=== PATIENT | male | born 1955 | race African-American/Black ===

== ENCOUNTER 2016-08-13 16:00 | Observation (INO) | payer BC ==
--- NOTE | ~2016-08-13 | CT4 ---
[facility] A Service of [facility] RADIOLOGY TEXT RESULTS PATIENT: TAJ MANTILLA LOCATION: A 238- : 55 UNIT #: [id number] AGE: [address]: Yemi Batista MD SEX: M ORDER DR: [id number] [facility] [place] [facility]. [place], [place] [address] [id number] MR#: [id number] Acc #: [id number] NAME: TAJ MANTILLA : 1955 SEX: M STUDY DATE/TIME: 08/15/2016 8:45 UNIT: C2 ROOM: [facility] STUDY DESCRIPTION: CT Abd and Pelv Wo Cont Attending Physician: Yemi Batista M.D. Ordering Physician: Yemi Batista M.D. Primary Care Physician: Yemi Batista M.D. MEDICAL IMAGING REPORT This report is preliminary unless electronic signature is present EXAM CT abdomen and pelvis without contrast. HISTORY Nausea and vomiting since August 09. COMPARISON 01/30/2016 Axial 5 mm images were obtained through the abdomen and pelvis without IV or oral contrast. This CT exam was performed with one or more of the following radiation dose reduction techniques: automatic exposure control, adjustment of mA and/or kV according to patient size, and iterative reconstruction. FINDINGS Lung bases are clear. The liver, spleen, pancreas, adrenal glands and kidneys are normal. The gallbladder has been removed. The aorta is normal in size. There is no adenopathy. There is a thin rim of soft tissue surrounding the aorta measuring about 5-8 mm in thickness, this is unchanged from the prior study. There are older studies including 05/25/2012 and this is unchanged. Soft tissue begins below the renal arteries. This could represent retroperitoneal fibrosis. The bowel including the appendix appears normal. The bladder and prostate gland are normal. IMPRESSION 1. There is a rim of soft tissue around the infrarenal aorta measuring up to 8 mm in thickness suggesting some retroperitoneal fibrosis. This is unchanged from 05/25/2012. 2. Previous cholecystectomy. [facility] A Service of [facility] RADIOLOGY TEXT RESULTS PATIENT: TAJ MANTILLA LOCATION: [facility] 238-01 : 55 UNIT #: [id number] AGE: [address]: Yemi Batista MD SEX: M ORDER DR: 3. Normal appendix. 4. Otherwise normal. Dictated by... Chaitanya Davis M.D. THIS IS AN ELECTRONICALLY VERIFIED REPORT Chaitanya Davis M.D. at 08/16/2016 7:28 AM RUMA/jason TD: 08/15/2016 09:27 JOB #: [id number] MEDICAL IMAGING REPORT Page 1 of 1 COPY
--- NOTE | ~2016-08-13 | HP ---
Unit #: [id number] #: [id number] Patient: TAJ MANTILLA [id number] [address] [place], [place] [address] [id number] I MR#: [id number] NAME: TAJ MANTILLA ROOM: 238 Age: 61 Sex: M Admission Date: 08/13/2016 : 1955 Attending Physician: Yemi Batista M.D. Primary Care Physician: Yemi Batista M.D. HISTORY AND PHYSICAL HISTORY OF PRESENT ILLNESS The patient is a 61-year-old black male with a history of hypertension, coronary artery disease, and hyperlipidemia, who has had on and off episodes of recurrent nausea, vomiting, and diarrhea for the past few years. He was previously admitted May 03, 2016, at which he had a CT scan that showed no active disease except for some scarring around his aorta that seemed to be stable. He was admitted at that time for acute kidney injury. He had had a previous episode that resolved with outpatient treatment. Now, he has had a recurrent episode that started on August 09, 2016. He was seen August 10, 2016, in the office and treated with clear liquid diet, Phenergan, and Imodium. Labs were sent and were fairly unremarkable except for a slightly elevated white count, fasting blood sugar, and calcium. He followed up today to be sure he was getting better and stated that his diarrhea is somewhat better, but every time he eats any solid foods, he has recurrent episodes of nausea and vomiting. He seems to be doing okay with clear liquids. But my concern is he may have a partial gastric outlet obstruction, and he is being admitted for further evaluation and therapy. ALLERGIES No known medical allergies. MEDICATIONS PRIOR TO ADMISSION 1. Plavix 75 mg daily. 2. Aspirin 81 mg daily. 3. Metoprolol succinate 25 mg daily. 4. Amlodipine 10 mg daily. 5. Atorvastatin 80 mg daily. 6. Valsartan 320 mg daily. 7. CoQ10 at 200 mg daily. PAST MEDICAL HISTORY 1. Colonic polyps. 2. Coronary artery disease. 3. Hypertension. 4. Hyperlipidemia. 5. Recurrent episodes of nausea, vomiting, and diarrhea. PAST SURGICAL HISTORY 1. Angioplasty x2 in 2008 and 2010. 2. Cholecystectomy per laparoscopy in 2010. Unit #: [id number] #: [id number] Patient: TAJ MANTILLA SOCIAL HISTORY . Employed at [employer]. Nonsmoker, nondrinker, and no street drug use. FAMILY HISTORY Noncontributory. PHYSICAL EXAMINATION GENERAL: He is awake, alert, oriented x3, and in some distress because of ongoing nausea and vomiting. Here in the office, his weight was stable from last time, and it dropped about eight pounds since his May visit, currently at 206. Height 65 inches and BMI 34. VITAL SIGNS: Temperature 98.7, O2 saturation on room air 98%, and heart rate 65. HEENT: Unremarkable. Sclerae were nonicteric, not pale. His mucous membranes were not dry. NECK: Supple without JVD, bruits, adenopathy, or thyromegaly. CHEST: Clear to auscultation. HEART: Regular rate and rhythm, without any murmurs, rubs, or gallops. ABDOMEN: Soft, nondistended, and nontender, with positive bowel sounds and no hepatosplenomegaly. EXTREMITIES: No clubbing, cyanosis, or edema. GENITOURINARY/RECTAL: Deferred. NEUROLOGIC: Grossly intact. DIAGNOSTIC STUDIES LABORATORY: Mentioned above. IMPRESSION 1. Recurrent nausea, vomiting, and diarrhea of unclear etiology. 2. Distant history of peptic ulcer disease. 3. Hypertension. 4. Coronary artery disease. 5. Hyperlipidemia. 6. Status post cholecystectomy. PLAN N.p.o. except for ice chips. IV fluids, IV Phenergan, and IV proton pump inhibitors. Bilateral SCDs for DVT prophylaxis. GI consult for EGD. Repeat labs possibly with a CT scan. Further evaluation pending results of the above. Dictated by Tong [place]/ruperto TD: 08/13/2016 17:19 JOB #: [id number] Unit #: [id number] #: [id number] Patient: TAJ MANTILLA HISTORY AND PHYSICAL Page 1 of 1 X Yemi Batista MD HISTORY AND PHYSICAL
--- NOTE | ~2016-08-13 | DS ---
Unit #: [id number] #: [id number] Patient: TAJ MANTILLA [id number] [address] [place], [place] [address] [id number] MR#: [id number] NAME: TAJ MANTILLA ROOM: 238 Age: 61 Sex: M Admission Date: 08/13/2016 : 1955 Discharge Date: 08/16/2013 Attending Physician: Yemi Batista M.D. Primary Care Physician: Yemi Batista M.D. DISCHARGE SUMMARY PRINCIPAL DISCHARGE DIAGNOSES 1. Acute kidney injury. 2. Nausea, vomiting and diarrhea. 3. 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 4. Coronary artery disease. 5. Hypertension. 6. Hyperlipidemia. PROCEDURES EGD with biopsies on 08/13/16. CONSULTANTS Dr. Power from GI service. REASON FOR HOSPITALIZATION The patient is a 61-year-old black male with history of hypertension, coronary artery disease and hyperlipidemia. He has had multiple episodes over the past few years of nausea, vomiting and diarrhea with multiple negative workups. He has had a previous cholecystectomy, had a negative CAT scan in May of 2016, negative colonoscopy in 2013 but did have a history of peptic ulcer disease. He was seen in the office about 3 days prior to admission with recurrent nausea, vomiting and diarrhea. He was placed on clear liquids and sent home with Phenergan suppositories and Imodium p.r.n., only to come back to the office with no improvement. At that time it was felt that he needed to be admitted for further evaluation and rehydration, and he was admitted directly from the office on the . HOSPITAL COURSE He was admitted to a med/surg bed. He was made NPO except for ice chips, started on IV fluids. Labs were sent. He was started on IV Protonix. GI service was consulted. He was given IV antiemetics. Labs showed a CBC to be normal. His sodium was 132, potassium 3.3, BUN 32, creatinine 1.5, GFR 57, consistent with acute kidney injury. Amylase and lipase were normal. He underwent EGD, which showed some mild duodenitis and gastritis. Biopsies were sent and showed same. H. pylori stains were negative, and there was no malignancy. We attempted to advance his diet, but he did not tolerate it. Because of this, he underwent a CT scan, which was within normal limits except for some chronic fibrotic changes in the infrarenal aorta, consistent with retroperitoneal fibrosis, unchanged from 05/25/12. Evidence of previous cholecystectomy. He was placed on Reglan. He has been tolerating a regular diet for the past 24 hours. His labs have normalized. He is being discharged home. DISCHARGE MEDICATIONS Unit #: [id number] #: [id number] Patient: TAJ MANTILLA 1. Reglan 5 mg a.c. 2. Imodium p.r.n. 3. Diovan 320 mg daily. 4. CoQ10 200 mg daily. 5. Multivitamin daily. 6. Aspirin 81 mg daily. 7. Plavix 75 mg daily. 8. Protonix 40 mg daily. 9. I believe he is on some other antihypertensives and a statin at home, which he will resume. FOLLOW-UP He will follow up in 1 week in the office. He is to call in the meantime for any problems. Dr. Power, as well as myself, suspect he might be having marijuana-induced hyperemesis. His drug screen here was positive for same. Discussion with the patient, abstinence encouraged. He understands and will be discharged home. Dictated by... Yemi Batista M.D. IRINEO/ildefonso TD: 08/16/2016 09:36 JOB #: [id number] DISCHARGE SUMMARY Page 1 of 1 X Yemi Batista MD X DISCHARGE SUMMARY
--- NOTE | ~2016-08-13 | OR ---
Unit #: [id number] #: [id number] Patient: TAJ MANTILLA [id number] [address] [address] [id number] I MR#: [id number] NAME: TAJ MANTILLA ROOM: [facility] Date of Procedure: 08/13/2016 Admission Date: 08/13/2016 Surgeon: Prosper Power M.D. : 1955 Attending Physician: Yemi Batista M.D. Primary Care Physician: Yemi Batista M.D. OPERATIVE REPORT JOB NOTE: CC: PRIMARY CARE PHYSICIAN PROCEDURE PERFORMED Esophagogastroduodenoscopy with biopsies. INDICATIONS FOR PROCEDURE The patient with persistent nausea and vomiting. MEDICATIONS Monitored anesthesia. POSTOPERATIVE FINDINGS 1. Mild esophagitis and hiatal hernia. 2. Diffuse gastritis. Biopsies taken. 3. Significant duodenitis involving duodenal bulb and descending duodenum. Biopsies taken separately. PLAN 1. Continue PPI therapy and symptomatic treatment. 2. Follow up on pathology report. DESCRIPTION OF PROCEDURE The patient was explained of the procedure, risks, and benefits along with risks and benefits of anesthesia. He was brought to the endoscopy room. Propofol anesthesia was given. Bite block was placed. The scope was passed down the mouth into the esophagus, stomach, duodenum, and distal duodenum. Findings as described. Biopsies taken. Gently, I pulled the scope out of the patient's mouth. He tolerated it well. Dictated by... Tong Weeks/ericka TD: 08/14/2016 22:21 JOB #: [id number] Unit #: [id number] #: [id number] Patient: TAJ MANTILLA OPERATIVE REPORT Page 1 of 1 X Prosper Power MD X PROCEDURE OPERATIVE NOTE
[~2016-08-13 16:00] MED LIST: AMLODIPINE BESYL5 MG PO; APRESOLINE PO; ASPIRIN PO; BAYER ASPIRIN325 M1 PO; CLONIDINE HCL0.1 MG PO; CLONIDINE PO; CLOPIDOGREL75 MG PO; CO Q-10200 MG PO; DIOVAN HCT 160/1 TAB PO; DIOVAN HCT 1601 EACH PO; DIOVAN PO; DIOVAN320 MG PO; ECOTRIN81 M1 PO; HYDRALAZINE HCL25 MG PO; IMMODIUM PO; LIPITOR PO; LOPRESSOR PO; LORTAB 101 TAB 10/5 PO; NITROGYLCERIN SUBLINGUAL; NITROLINGUAL12 G1 SL; PHENERGAN25 MG PO; PLAVIX PO; PRILOSEC40 MG PO; PROTONIX PO; RA ONE DAILY M1 EACH PO; TOPROL XL PO; ZANTAC150 MG PO; ZANTAC300 MG PO
[2016-08-13 20:01] LABS: HEMATOCRIT 45.2 % (38.0-50.0); HEMOGLOBIN 15.4 gm/dL (13.0-16.0); MEAN CELL VOLUME 78.8 FL (83-96); MEAN CORPUSCULAR HEMOGLOBIN 26.9 PG (28-34); MEAN CORPUSCULAR HGB CONC 34.2 g/dL (30-36); MEAN PLATELET VOLUME 7.8 FL (6.5-11.5); RED BLOOD COUNT 5.74 X10e (3.90-5.60); WHITE BLOOD COUNT 10.3 X10e3 (4.0-10.5)
[2016-08-13 20:29] LABS: BILIRUBIN,TOTAL 1.2 mg/dL (0.2-2.0); BUN/CREATININE RATIO 21.33; CALCIUM SERUM 8.5 mg/dL (8.4-10.2); CREATININE SERUM 1.5 mg/dL (0.6-1.4); GLOM FILT RATE Estimated 57.4 mL/min (>60); MAGNESIUM 2.1 mg/dL (1.6-3.0); POTASSIUM 3.3 mmol/L (3.5-5.1)
[2016-08-14 05:16] LABS: HEMATOCRIT 43.1 % (38.0-50.0); HEMOGLOBIN 14.4 gm/dL (13.0-16.0); MEAN CELL VOLUME 79.3 FL (83-96); MEAN CORPUSCULAR HEMOGLOBIN 26.6 PG (28-34); MEAN CORPUSCULAR HGB CONC 33.5 g/dL (30-36); MEAN PLATELET VOLUME 7.9 FL (6.5-11.5); RED BLOOD COUNT 5.44 X10e (3.90-5.60); RED CELL DISTRIBUTION WIDTH 14.7 % (11.0-15.5); WHITE BLOOD COUNT 7.5 X10e3 (4.0-10.5)
[2016-08-14 06:48] LABS: ALBUMIN SERUM 3.2 g/dL (3.5-5.0); BILIRUBIN,TOTAL 1.2 mg/dL (0.2-2.0); BUN/CREATININE RATIO 20.83; CALCIUM SERUM 8.4 mg/dL (8.4-10.2); CREATININE SERUM 1.2 mg/dL (0.6-1.4); GLOM FILT RATE Estimated 75.2 mL/min (>60); POTASSIUM 3.3 mmol/L (3.5-5.1); PROTEIN TOTAL SERUM 5.7 g/dL (6.0-8.3)
[2016-08-14 07:03] LABS: AMPHETAMINE NEG (NEG); BARBITURATES NEG (NEG); BENZODIAZEPINES NEG (NEG); COCAINE NEG (NEG); MARIJUANA POS (NEG); OPIATES NEG (NEG); TRICYCLIC ANTIDEPRESSANTS NEG (NEG); U METHADONE NEG (NEG)
[2016-08-15 06:49] LABS: BUN/CREATININE RATIO 13.33; CALCIUM SERUM 8.4 mg/dL (8.4-10.2); CREATININE SERUM 0.9 mg/dL (0.6-1.4); GLOM FILT RATE Estimated 106.5 mL/min (>60); MAGNESIUM 1.7 mg/dL (1.6-3.0); POTASSIUM 3.5 mmol/L (3.5-5.1)
[2016-08-16] MEDS ORDERED: REGLAN5 MG PO (10:39)
== END 2016-08-16 13:25 | disposition home or self-care (01) | DRG 684 ==
LOC: C2A 16:00
PROVIDERS: Internal Medicine
DX: N17.9 Acute kidney failure, unspecified (principal); R11.2 Nausea with vomiting, unspecified; R19.7 Diarrhea, unspecified; K21.0 Gastro-esophageal reflux disease with esophagitis; K29.80 Duodenitis without bleeding; K29.50 Unspecified chronic gastritis without bleeding; K44.9 Diaphragmatic hernia without obstruction or gangrene; I25.10 Atherosclerotic heart disease of native coronary artery without angina pectoris; I10 Essential (primary) hypertension; E78.5 Hyperlipidemia, unspecified; Z87.11 Personal history of peptic ulcer disease; Z90.49 Acquired absence of other specified parts of digestive tract
CPT/HCPCS: 74176; 80048; 80053; 80307; 82150; 83690; 83735; 84132; 85027; 88305; 88312; 96365; 96366; 96375; 96376; C9113; G0378; J2250; J2550; J2765; J3475